=== PATIENT | male | born 1995 | race Caucasian/White ===

== ENCOUNTER 2017-06-16 17:52 | Emergency (ER) | payer BC ==
[2017-06-16 18:33] VITALS: BP 128/52
[2017-06-16] MEDS ORDERED: Lidocaine 2% W/EPI 1:100,000* 20 ML MDV INJ ONE (18:38)
[2017-06-16] MEDS ORDERED: Cephalexin CAP* 500 MG PO ONE (19:09)
[2017-06-16] MEDS ORDERED: Sulfamethox/Trimethoprim DS 800/160* TAB PO ONE (19:09)
--- NOTE | 2017-06-16 19:17 | UC ---
Skin Complaint HPI - HPI Summary HPI Summary: 22 yo male with "ingrown hair" right inner thigh x 3-4 days now more swollen and painful with area of erthyema surrounding it no fever or chills - History of Current Complaint Chief Complaint: UCSkin Time Seen by Provider: 06/16/17 18:27 Stated Complaint: skin complaint Hx Obtained From: Patient Onset/Duration: Gradual Onset, Lasting Days Timing: Constant Onset Severity: Mild Current Severity: Mild Pain Intensity: 3 Pain Scale Used: 0-10 Numeric Location: Discrete Character: Swelling, Pain, Redness, Raised Aggravating: Touch Alleviating: Nothing Associated Signs & Symptoms: Positive: Tenderness - Allergy/Home Medications Allergies/Adverse Reactions: Allergies Allergy/AdvReac Type Severity Reaction Status Date / Time No Known Allergies Allergy Unverified 06/16/17 18:29 Review of Systems Constitutional: Negative Skin: Negative Eyes: Negative ENT: Negative Respiratory: Negative Cardiovascular: Negative Gastrointestinal: Negative Genitourinary: Negative Motor: Negative Neurovascular: Negative Musculoskeletal: Negative Neurological: Negative Psychological: Negative All Other Systems Reviewed And Are Negative: Yes PMH/Surg Hx/FS Hx/Imm Hx Previously Healthy: Yes - Surgical History Surgical History: None - Family History Known Family History: Positive: Hypertension - Social History Alcohol Use: None Substance Use Type: None Smoking Status (MU): Never Smoked Tobacco - Immunization History Vaccination Up to Date: Yes Physical Exam Triage Information Reviewed: Yes Appearance: Well-Appearing, No Pain Distress, Well-Nourished Vital Signs: Initial Vital Signs Temp 98.7 F 06/16/17 18:30 Pulse 56 06/16/17 18:30 Resp 16 06/16/17 18:30 BP 128/52 06/16/17 18:30 Pulse Ox 100 06/16/17 18:30 Vital Signs Reviewed: Yes Eyes: Positive: Conjunctiva Clear ENT: Positive: Hearing grossly normal. Negative: Nasal congestion, Nasal drainage, Trismus, Muffled/hoarse voice Neck: Positive: Supple Respiratory: Positive: Lungs clear, Normal breath sounds, No respiratory distress Cardiovascular: Positive: RRR, No Murmur Musculoskeletal: Positive: ROM Intact, No Edema Neurological: Positive: Alert Psychological Exam: Normal Skin Exam: Other - see image Course/Dx - Diagnoses Provider Diagnoses: right inner thign abscess with overlying cellulitis Procedures - Procedure Summary Procedure Summary: incision and drainage of right inner thigh abscess time out sterile prep anesth with 2% lidocaine incised scant d/c expressed and culture sterile dressing Discharge - Discharge Plan Condition: Stable Disposition: HOME Prescriptions: Cephalexin CAP* [Keflex CAP*] 500 mg PO QID #28 cap Sulfamethox/Trimethoprim DS* [Bactrim DS 800/160 TAB*] 1 tab PO BID #14 tab Patient Education Materials: Cellulitis (ED), Abscess (ED) Referrals: Herlinda Gonzales MD [Primary Care Provider] - 2 Days Additional Instructions: warm soap compresses 2-4 x day until healed recheck in 48 hours if not improved (here or with your MD) recheck sooner for worsening symtpoms advil or aleve for pain Images Front/Back of Body, Lg ([place]): 1 - 1 x 1 cm area of induration tenderness with 8x 10 cm area of erthyema surrounding it
== END 2017-06-16 19:18 | disposition home or self-care (01) ==
LOC: UCCORT 17:52
DX: L02.415 Cutaneous abscess of right lower limb (principal)
CPT/HCPCS: 10060; 87070; 87205; 99212; A9270-GY; G0463

== ENCOUNTER 2017-08-24 12:13 | Emergency (ER) | payer BC ==
[2017-08-24 13:12] VITALS: BP 127/64
--- NOTE | 2017-08-24 13:15 | UC ---
Lower Extremity/Ankle HPI - HPI Summary HPI Summary: 22 y/o female presents to the urgent care accompany by father c/o RT lateral side foot pain s/p injury while running in a mud competition on 08/12/2017. Then on 08/15/2017 he run again, he tape it but when he finished the competition the pain was worse. He has been taking Ibuprofen on and off and RICE, but symptoms are not resolving. Pain is sharp with flexion and extension of foot around 7/10 and better at rest. Pain is localized at the lateral side of his foot with mild swelling at the beginning, he had a bruise. Pt denies numbness and tingling over the toes, fever, SOB, chest pain, N/V/D - History of Current Complaint Chief Complaint: UCLowerExtremity Stated Complaint: RIGHT FOOT PAIN Time Seen by Provider: 08/24/17 13:13 Hx Obtained From: Patient Onset/Duration: Sudden Onset, Lasting Days - 10 days, Still Present Severity Initially: Severe Severity Currently: Moderate Pain Intensity: 7 Pain Scale Used: 0-10 Numeric Aggravating Factor(s): Ambulation Alleviating Factor(s): Rest Able to Bear Weight: Yes - Risk Factors Gout Risk Factors: Negative DVT Risk Factors: Negative Septic Arthritis Risk Factor: Negative - Allergies/Home Medications Allergies/Adverse Reactions: Allergies Allergy/AdvReac Type Severity Reaction Status Date / Time No Known Allergies Allergy Unverified 08/24/17 13:07 PMH/Surg Hx/FS Hx/Imm Hx Previously Healthy: Yes - Pt denies PMHX - Surgical History Surgical History: None - Family History Known Family History: Positive: Hypertension Family History: Hypothyrodism - Social History Occupation: Employed Full-time, Student Lives: With Family Alcohol Use: Occasionally Substance Use Type: None Smoking Status (MU): Never Smoked Tobacco - Immunization History Vaccination Up to Date: Yes Review of Systems Constitutional: Negative Skin: Negative Eyes: Negative ENT: Negative Respiratory: Negative Cardiovascular: Negative Gastrointestinal: Negative Genitourinary: Negative Motor: Negative Neurovascular: Negative Musculoskeletal: Other: - RT lateral foot pain s/p injury Neurological: Negative Psychological: Negative Is Patient Immunocompromised?: No All Other Systems Reviewed And Are Negative: Yes Physical Exam Triage Information Reviewed: Yes Appearance: Well-Appearing, No Pain Distress, Well-Nourished, Thin Vital Signs: Initial Vital Signs Temp 99.4 F 08/24/17 13:07 Pulse 68 08/24/17 13:07 Resp 16 08/24/17 13:07 BP 127/64 08/24/17 13:07 Pulse Ox 100 08/24/17 13:07 Vital Signs Reviewed: Yes Eyes: Positive: Conjunctiva Clear - PERRLA, EOMI, fundi grossly normal ENT: Positive: Normal ENT inspection, Hearing grossly normal, Pharynx normal, TMs normal - B/L external ear canal clear, Neck: Positive: Supple, Nontender, No Lymphadenopathy Respiratory: Positive: Chest non-tender, Lungs clear, Normal breath sounds, No respiratory distress Cardiovascular: Positive: RRR, No Murmur, Pulses Normal, Brisk Capillary Refill Abdomen Description: Positive: Nontender, No Organomegaly, Soft. Negative: CVA Tenderness (R), CVA Tenderness (L) Bowel Sounds: Positive: Present Musculoskeletal: Positive: Strength Intact, Other: - Foot: Pt is able to bear weight , elicits mild pain No surface trauma, ecchymosis, erythema, lesions, ulcers or break in skin integrity. The R foot is without obvious asymmetry or deformity when compared to the L foot. [place] step-off,Point tenderness to palpation over the RT lateral side of foot around the fifth metatarsal and on the lateral sole. Decrease plantar/dorsiflexion and inversion and eversion of foot due to pain. Distal motor and neurovascular status are intact. Neurological Exam: Normal Psychological Exam: Normal Skin Exam: Normal Lower Extremity Course/Dx - Course Course Of Treatment: 22 y/o female presents to the urgent care accompany by father c/o RT lateral side foot pain s/p injury while running in a mud competition on 08/12/2017. Then on 08/15/2017 he run again, he tape it but when he finished the competition the pain was worse. He has been taking Ibuprofen on and off and RICE, but symptoms are not resolving. Pain is sharp with flexion and extension of foot around 7/10 and better at rest. Pain is localized at the lateral side of his foot with mild swelling at the beginning, he had a bruise. Pt denies numbness and tingling over the toes, fever, SOB, chest pain, N/V/D. Hx obtained, RT foot Xray ordered, Impression: no fractured noted, Most likely a sprain foot or peroneal tendonitis. Pt given post-op shoe and Rx Naproxen for pain. Advised RICE, given PT referral for further evaluation and treatment. If not improvement of symptoms to f/u with Orthopedic DR Amaya. Pt explained D/C intructions. Pt understood and agreed with plan of care. Left the clinic ambulating. - Differential Dx/Diagnosis Differential Diagnosis/HQI/PQRI: Fracture (Closed), Sprain, Strain, Tendonitis Provider Diagnoses: 1- RT foot pain Discharge - Discharge Plan Condition: Stable Disposition: HOME Prescriptions: Naproxen TAB* [Naprosyn 250 mg TAB*] 500 mg PO Q8H PRN #30 tab PRN Reason: Pain Patient Education Materials: Foot Sprain (ED) Referrals: Herlinda Gonzales MD [Primary Care Provider] - 1 Week Fernando Amaya MD [Medical Doctor] - 1 Week Additional Instructions: 1-Please take medications as directed to alleviate pain and swelling. 2-Please apply ice, keep your ankle immobilized with the shoe. 3- F/u with Physical therapy referral for further evaluation and treatment 4- Please f/u with Orthopedic if not improvement of symptoms for further evaluation and treatment.
--- NOTE | 2017-08-24 13:43 | RAD ---
Indication: Right foot pain. 3 views of the right foot demonstrates no fracture. No other bone or joint abnormality is identified. IMPRESSION: No fracture of the right foot is noted.
== END 2017-08-24 14:14 | disposition home or self-care (01) ==
LOC: UCCORT 12:13
DX: M79.671 Pain in right foot (principal)
CPT/HCPCS: 99213; G0463